=== PATIENT | female | born 1995 | race Two or more races ===

== ENCOUNTER 2017-12-26 22:14 | Emergency (ER) | payer MEDICAID ==
[~2017-12-26] VITALS: Ht 160 cm; Wt 77.0 kg
[2017-12-27 03:00] VITALS: BP 126/75
[2017-12-27] MEDS ORDERED: PREDNISONE 20MG TABLET PO ONE (03:15)
[2017-12-27] MEDS ORDERED: IBUPROFEN 600MG TABLET PO ONE (03:15)
== END 2017-12-27 04:30 | disposition home or self-care (01) ==
LOC: ER 22:14
DX: J06.9 Acute upper respiratory infection, unspecified (principal)
CPT/HCPCS: 81025; 87070; 87430; 99284; J7512